=== PATIENT | female | born 1960 | race Caucasian/White ===

== ENCOUNTER 2020-10-06 14:59 | Outpatient (CLI) | payer MEDICARE, MEDICAID ==
[~2020-10-06 14:59] MED LIST: AZAT50TA PO; BACDS PO; CALC-642 PO; FISH1CAP15 PO; PER5325T PO; SYN0.075T PO; TRAM50TA2 PO
== END 2020-10-06 23:59 | disposition home or self-care (01) ==
LOC: CARD DIAG 14:59
PROVIDERS: ATTEND Internal Medicine Pulmonary Disease
DX: I08.3 Combined rheumatic disorders of mitral, aortic and tricuspid valves (principal)
CPT/HCPCS: 93306